=== PATIENT | female | born 1985 | race Caucasian/White ===

== ENCOUNTER 2022-01-15 11:29 | Outpatient (CLI) | payer MEDICAID, SELFPAY ==
--- OUTSIDE RECORDS SUMMARY | 2022-01-15 11:33 | XMS_ITS | Clinical Summary ---
:1985 Author Organization [facility] Address [address] [place] [address] Care Team Providers Name Role Phone Unavailable Primary Care Provider Unavailable Source Comments You are receiving this document as you are listed as the primary care provider,follow-up provider, or the patient has been referred to you for consultation.This is in compliance with the Medicare and Medicaid EHR Incentive Program,which states Providers who transition their patient to another setting of careor provider of care or refers their patient to another provider of care shouldprovide summarycare record for each transition of care or referral. [facility] Allergies No known active allergies Medications Medication Sig Dispensed Refills Start Date End Date Status magnesium oxide Take 1-2 Tablets by 60 Tablet 1 01/13/2019 Active (MAG-OX) 400 MG mouth at bedtime as tablet needed. Vit-Fe 0 Acti ve Fumarate-FA ( VITAMIN OR) folic Acid 800 MCG Take 800 mcg by 0 Active tablet mouth daily. Cholecalciferol 0 Acti ve (VITAMIN D3 OR) hydrOXYzine HCl Take 50 mg by mouth 0 Active (ATARAX) 50 MG tablet three times a day as needed. Ascorbic Acid 0 Active (VITAMIN C OR) magnesium oxide Take 400 mg by 0 Active (MAG-OX) 400 MG mouth daily. tablet acetaminophen Take 500-1,000 mg 0 Active (TYLENOL) 500 MG by mouth every 4 tablet hours as needed for Pain. Maximum acetaminophen dose is 4000 mg in 24 hours calcium carbonate Take 500 mg by 0 Active (TUMS) 500 MG mouth daily. chewable tablet diphenhydrAMINE Take 25 mg by mouth 0 Active (BENADRYL) 25 MG every 6 hours as tablet needed for Itching. ferrous sulfate 325 Take 1 Tablet by 100 Tablet 01/15/2019 Active (65 Fe) MG tablet mouth every other day. Active Problems No known active problems Immunizations Name Administration Dates Next Due 4vHPV (Gardasil) 07/07/2012 DTP 11/28/1984, 02/14/1984, 1985, 1985 MMR 10/05/1984 OPV, Trivalent (Orimune or tOPV) 11/28/1984, 1983, 09/1983 Tdap 11/22/2018, 12/27/2011 Social History Tobacco Use Types Packs/Day Years Used Date Smoking Tobacco: Every Day Cigarettes 1 20 Smokeless Tobacco: Never Tobacco Cessation: Ready to Quit: No Alcohol Use Standard Drinks/Week Comments Not Currently 0 (1 standard drink = 0.6 oz pure alcoho l) Sex Assigned at Date Recorded Not on file Last Filed Vital Signs Vital Sign Reading Time Taken Comments Blood Pressure 131/67 01/15/2019 2:26 PM APPLICATION DEVELOPMENT DIRECTOR Pulse 91 01/15/2019 2:26 PM APPLICATION DEVELOPMENT DIRECTOR Temperature 36.9 ??C (98.4 ??F) 01/13/2019 8:10 PM APPLICATION DEVELOPMENT DIRECTOR Respiratory Rate 18 01/13/2019 8:10 PM APPLICATION DEVELOPMENT DIRECTOR Oxygen Saturation 100% 01/13/2019 8:10 PM APPLICATION DEVELOPMENT DIRECTOR Inhaled Oxygen Concentration - - Weight 87.1 kg (192 lb) 01/15/2019 2:26 PM APPLICATION DEVELOPMENT DIRECTOR Height 165.1 cm (5' 5) 01/12/2019 5:11 PM APPLICATION DEVELOPMENT DIRECTOR Body Mass Index 31.95 01/12/2019 5:11 PM APPLICATION DEVELOPMENT DIRECTOR Plan of Treatment Health Maintenance Due Date Last Done Comments Cervical Cancer Screening 1985 Due Hep C Screening (Preventive 1985 Services) HepB (1) 1985 COVID-19 Vaccine (#1) 1985 Pneumococcal (1 - PCV) 06/06/1989 HIV Screening (Preventive 1999 Services) Adult Preventive Visit 06/06/2001 Influenza (#1) 2021 DTaP/Tdap/Td (7 - Tdap) 11/22/2028 11/22/2018, 12/27/2011, 11/28/1984, Additional history exists Zoster/Shingles (1 of 2) 06/06/2033 IPV (Polio) Aged Out 11/28/1984, 1983, No longe r eligible 1983 based on patient 's age to complete this topic HPV Vaccine Aged Out 07/07/2012 No longer eligib le based on patient 's age to complete this topic HepA Aged Out No longer eligib le based on patient 's age to complete this topic Hib Aged Out No longer eligib le based on patient 's age to complete this topic MCV4 Aged Out No longer eligib le based on patient 's age to complete this topic Advance Directives Latest Code Status on File Code Status Date Activated Date Inactivated Comments Full Code 01/13/2019 9:23 PM 01/14/2019 12:10 AM Code Status History Code Status Date Activated Date Inactivated Comments Full Code 01/12/2019 6:38 PM 01/12/2019 11:11 PM Full Code 01/12/2019 4:57 PM 01/12/2019 6:38 PM
--- OUTSIDE RECORDS SUMMARY | 2022-01-15 11:33 | XMS_ITS | Encounter Summary ---
:1985 Author Organization [facility] Address [address] [place] [address] Care Team Providers Name Role Phone Unavailable Primary Care Provider Unavailable Reason for Visit Reason Comments FOLLOW-UP,ER Consult/Transfer Care (Routine) - Closed Specialty Diagnoses / Procedures Referred By Contact Refer red To Contact Diagnoses Hx of delivery, currently Pinky Contreras MD [address] [place] [address] Referral ID Status Reason Start Date Expiration Date Visits Requ ested Visits Authorized [id number] Closed 01/12/2019 04/12/2019 1 1 Encounter Details Date Type Department Care Team Description 01/15/2019 Office Visit [facility] Obstetrics and Fausto Heath History of delivery, currently (Primary Dx); Gynecology MD Phi Anemia during in t hird trimester; [facility] Insomnia, unspecified type [place], [place] [id number] Social History Tobacco Use Types Packs/Day Years Used Date Smoking Tobacco: Every Day Cigarettes 1 20 Smokeless Tobacco: Never Alcohol Use Standard Drinks/Week Comments Not Currently 0 (1 standard drink = 0.6 oz pure alcoho l) Sex Assigned at Date Recorded Not on file documented as of this encounter Last Filed Vital Signs Vital Sign Reading Time Taken Comments Blood Pressure 131/67 01/15/2019 2:26 PM BI APPLICATION DEVELOPER Pulse 91 01/15/2019 2:26 PM BI APPLICATION DEVELOPER Temperature - - Respiratory Rate - - Oxygen Saturation - - Inhaled Oxygen Concentration - - Weight 87.1 kg (192 lb) 01/15/2019 2:26 PM BI APPLICATION DEVELOPER Height - - Body Mass Index 31.95 01/12/2019 5:11 PM BI APPLICATION DEVELOPER documented in this encounter Patient Instructions Patient InstructionsFausto Heath MD - 01/15/2019 2:20 PM BI APPLICATION DEVELOPER ?? Follow-up with [facility] next week. If unable then please return to see Dr. Heath in1 week. Please complete a release of information to have records released to [facility] and sendit as soon as you find out. ?? Call with any questions. --Dr. Heath APPLICATION DEVELOPER documented in this encounter Progress Notes Fausto Heath MD - 01/15/2019 2:20 PM CST Chief Complaint Patient presents with ??? FOLLOW-UP,ER -requests 17-OHP 33 y.o. at 34w2d by Estimated Date of Delivery: 02/24/19 ?by her first ultrasound but uncertain of how far along. Had blood work with aneuploidy screen done so knows it is a girl, maybe it was around the same time as her US. Since Tuesday baby's movements have been typical; no bleeding, having small discharge. No odor, no itching. No LOF. Having difficulty with sleep, reports she used to be on Ambien and psychiatrist switched her to Lunesta - not taking them due to . Taking magneisum, which helps with restless leg type sxs. No CP/SOB. No SI. BP 131/67 (BP Location: Right Arm, BP Cuff Size: Regular) Pulse 91 Wt 192 lb (87.1 kg) BMI 31.95 kg/m?? Gen: NAD, is pleasant Eyes: Normal eye movements, no conjunctival hyperemia/normal injection; negative Resp: Good respiratory efforts; negative Lymph/Neck: No lymphadenopathy visualized, no thyromegaly seen; negative ENT: vocalizes normally; negative MS: Moves about easily; negative GI: Soft, NTTP throughout, no rebound/rigidity/guarding; gravid. Skin: No skin lesions are visible; negative Psych: Judgement appears normal; negative 1. History of delivery, currently 2. Anemia during in third trimester 3. Insomnia, unspecified type Orders Placed This Encounter ??? HYDROXYprogesterone injection 250 mg ??? ferrous sulfate 325 (65 Fe) MG tablet Patient Instructions ?? Follow-up with [facility] next week. If unable then please return to see Dr. Heath in 1 week. Please complete a release of information to have records released to [facility] and send itas soon as you find out. ?? Call with any questions. --Dr. Heath I did recommend continuing with her prior clinic for continuity but that I'm happy to see her if shecan't due to specifics of her rehab center. I wished her well with continued sobriety. Encouraged sleep hygiene but she already does that - should discuss it with her psychiatrist. Fausto Heath MD 01/15/2019, 5:42 PM APPLICATION DEVELOPER documented in this encounter Plan of Treatment Not on filedocumented as of this encounter Visit Diagnoses Diagnosis History of delivery, currently p regnant - Primary with history of pre-term labor Anemia during in third trimest er Insomnia, unspecified type documented in this encounter Administered Medications Inactive Administered Medications - up to 3 most recent administrations Medication Order MAR Action Action Date Dose Rate Site HYDROXYprogesterone Given 01/15/2019 250 mg Left Ventralgluteal injection 250 mg 3:11 PM BI APPLICATION DEVELOPER 250 mg, Intramuscular, WEEKLY, First dose on Tue01/15/19 at 1515, Last dose on Tue01/15/19 at 1515, For 1 dose, Preparation: Single glove, gown; face mask optional Administration: Single glove documented in this encounter
--- OUTSIDE RECORDS SUMMARY | 2022-01-15 11:33 | XMS_ITS | Encounter Summary ---
:1985 Author Organization [facility] Address [address] [place] [address] Care Team Providers Name Role Phone Unavailable Primary Care Provider Unavailable Encounter Details Date Type Department Care Team Description 01/13/2019 Hospital Encounter [facility] Labor & Delivery Emily Gilmore contractions [address] Everardo Morton MD (Primary Dx) [place], [place] [address] [facility] [address] [place], [place] [phone] [id number] Social History Tobacco Use Types Packs/Day Years Used Date Smoking Tobacco: Every Day Cigarettes 1 20 Smokeless Tobacco: Never Alcohol Use Standard Drinks/Week Comments Not Currently 0 (1 standard drink = 0.6 oz pure alcoho l) Sex Assigned at Date Recorded Not on file documented as of this encounter Last Filed Vital Signs Vital Sign Reading Time Taken Comments Blood Pressure 129/71 01/13/2019 8:10 PM QUARTZ ORIENTATOR Pulse 91 01/13/2019 8:10 PM QUARTZ ORIENTATOR Temperature 36.9 ??C (98.4 ??F) 01/13/2019 8:10 PM QUARTZ ORIENTATOR Respiratory Rate 18 01/13/2019 8:10 PM QUARTZ ORIENTATOR Oxygen Saturation 100% 01/13/2019 8:10 PM QUARTZ ORIENTATOR Inhaled Oxygen Concentration - - Weight 86.3 kg (190 lb 3.2 oz) 01/13/2019 8:10 PM QUARTZ ORIENTATOR Height - - Body Mass Index 31.65 01/12/2019 5:11 PM QUARTZ ORIENTATOR documented in this encounter Discharge Instructions Discharge InstructionsSophie Silverio RN - 01/13/2019 9:[address] [facility] Baby Careline [phone]; to be used by [facility] patients and [facility] patients TZ ORIENTATOR Discharge Instr - SafetySophie Silverio RN - 01/13/2019 9:50 PM QUARTZ ORIENTATOR Call your clinic or seek medical help if you have any sudden change in your condition or if you haveany of the following: Please be seen by your doctor for the following symptoms: Sharp abdominal pain If your water breaks Abnormal bleeding or discharge Decreased movement TZ ORIENTATOR documented in this encounter Medications at Time of Discharge Medication Sig Dispensed Refills Start Date End Date magnesium oxide (MAG-OX) Take 1-2 Tablets by 60 Tablet 1 400 MG tablet mouth at bedtime as needed. documented as of this encounter Progress Notes Sophie Silverio RN - 01/13/2019 8:36 PM CST Mabel Villegas, a at 34w0d with an MONROE of 02/24/2019, Alternate MONROE Entry, was seen at Labor& Delivery for a nonstress test. Pt states feeling well today. Arrived to L&D for NST and second dose of betamethasone injection.NST via external monitors showed reactive FHT, 145 baseline with moderate variability, 15x15 accels present, decels absent. Pt denies feeling contractions. Second betamethasone injection administered at 2029 in right ventral gluteal. Plan : discharge pt TZ ORIENTATOR documented in this encounter Consult Notes Winsome Stevenson RN - 01/13/2019 10:10 PM CST Pt at [facility], staff called to ask about progesterone injection that is supposed william scheduled tomorrow. Called [facility] to set up, stated they are unable to get in due to lack of appointments available. This staff suggested they call back and ask to have a nurse appointment due to the fact that it is an appt to receive an injection. Consulted here with Ramon GIRON and it was agreed that this would be appropriate. Stated to [facility] RN to call us back if they run into the same obstacle. TZ ORIENTATOR documented in this encounter Plan of Treatment Not on filedocumented as of this encounter Visit Diagnoses Diagnosis contractions - Primary Unspecified abnormality of labor, antepa rtum Plan of Care - Sophie Silverio RN - 01/13/2019 10:10 PM CST [facility] Discharge Note - Nursing Admission Date/Time: 01/13/2019 8:04 PM Attending MD: Patient discharged: To [facility] Discharge Date: 01/13/2019 Discharge Time: 10:10 PM Patient accompanied by: [employer] local flatbed driver. Transported by: Walked Valuables were taken home by patient: Yes Discharge instructions given and explained to patient: Yes Discharge Patient Education Plan completed, taught, and provided to patient/caregiver at discharge: Yes ?? Discussed medication risks with patient ?? Patient understands medications usage and side effects ?? Patient understands diagnosis ?? Action Plan for management of symptoms/side effects/complications requiring medical attention established and shared with patient/caregiver Was patient discharged on Warfarin? {(Do not delete line; Warfarin documentation is required) No Patients general condition on discharge: Stable. All medical devices (telemetry/IV/etc) unless otherwise ordered, have been removed and stored: Yes Report Completed by: Sophie Silverio RN --- End of Report --- TZ ORIENTATOR documented in this encounter Administered Medications Inactive Administered Medications - up to 3 most recent administrations Medication Order MAR Action Action Date Dose Rate Site betamethasone Given 01/13/2019 8:30 12 mg Right Ventralgluteal acetate-betamethasone PM QUARTZ ORIENTATOR sodium phosphate (CELESTONE SOLUSPAN) injection 12 mg 12 mg, Intramuscular, ONCE, On 01/13/19 at 2044, For 1 dose documented in this encounter Active and Recently Administered Medications Times are shown in QUARTZ ORIENTATOR. Scheduled Medication Order 01/11/2019 01/12/2019 01/13/2019 betamethasone acetate-betamethasone sodi um phosphate (CELESTONE SOLUSPAN) injection 12 mg (COMPLETED) 2029 (Given - Provider: Sophie Silverio RN) 12 mg, Intramuscular, ONCE, On 01/13/19 at 2044, For 1 dose documented in this encounter
--- OUTSIDE RECORDS SUMMARY | 2022-01-15 11:33 | XMS_ITS | Clinical Summary ---
:1985 Author Organization [facility] [place] [address] Care Team Providers Name Role Phone None Primary Care Provider Unavailable Allergies No known active allergies Medications Medication Sig Dispensed Refills Start End Date Status Date ACETAMINOPHEN 325 MG TAB Take 1-2 325mg 0 0 Active tablets by mouth 8 every 4 hours for mild pain as needed. Take 1 Tablet by 100 Tablet 3 Ac tive Gjrycuui-Bx-Kcp-Fe-FA mouth once daily. 1 ( Vitamin) tab Take one by mouth tabletIndications: daily. Suprvsn of high risk preg due to social problems, second tri hydroxyprogesterone Inject 250 mg 1 mL 20 Active caproate (Cementon) 250 intramuscular once 1 mg/mL (1 mL) (PF) weekly. From 16 injectionIndications: weeks gestation History of till 36 6/7 weeks delivery, currently gestation. in second trimester mirtazapine (REMERON) 0 Active 7.5 mg tablet 1 Active Problems Problem Noted Date Antepartum multigravida of advanced maternal age 0910/17 ADHD (attention deficit hyperactivity disorder) 2019 Hx of drug abuse 02/16/2019 Overview: Methamphetamine use. Tobacco use disorder 04/03/2007 Anemia, unspecified 04/03/2007 RH NEGATIVE 04/03/2007 Overview: Rhogam given 04/03/07, 04/04/07 Opioid type dependence, unspecified 04/03/2007 Overview: Vicodin Prior complicated by PIH, antepartum, unspec ified trimester Resolved Problems Problem Noted Date Resolved Date care, subsequent in third trimester 02/1601/18/2020 Overview: Hx significant for delivery 31 w eeks, abruption. Vaginal forceps. AMA Hx opioid dependence Hx Chlamydia Hx Anemia-taking iron supplements RH NEG Hx Methamphetamine use in . Las t used 12/15/18 per patient. Prepregnancy BMI: Early GCT: ASA: Dated by: LMP consistent with US on 01/09 02/25 Would accept blood products: yes Pertinent medical information: See above Previous deliveries reviewed by MD: screening: Screening US: Contraception plan: Rh neg, Rhogam: FORCEPS DELIVERY 04/04/2007 01/18/2020 FORCEPS ASSISTED VAGINAL DELIVERY AT 31 WEEKS 04/04/2007 01/18/2020 Midline Episiotomy 04/04/2007 01/18/2020 Premature rupture of membranes in , unspecified as to 04/03/2007 01/18/2020 episode of care Overview: Duration: Tuesday04/01/2007 Threatened premature labor, antepartum(644.03) 04/03/2007 01/18/2020 Chlamydia trachomatis infection of lower genitourinary sites 04/03/2007 01/18/2020 Overview: Positive 01/12/2007 status post treatmen t, partner treated, no test for cure, retreated 04/04/07 RH NEGATIVE 04/03/2007 01/18/2020 Overview: Rhogam given 04/03/07 & 04/04/07 Oligohydramnios, unspecified as to episode of care 8 01/18/2020 Nondependent amphetamine or related acting sympathomimetic 0 04/03/2007 01/18/2020 abuse, unspecified Alcohol abuse, unspecified 04/03/2007 01/18/2020 Overview: early Opioid type dependence, unspecified 04/03/200701/07 Overview: Vicodin Immunizations Name Administration Dates Next Due DTP 11/28/1984, 02/14/1984, 1985, 1985 Human Papilloma Virus Vaccine 07/07/2012 Influenza Virus, Unspecified 10/19/2016, 11/06/2012 Influenza, IIV3 (Age >=3 years) 10/12/2011, 04/06/2007 Influenza, IIV4 12/22/2018, 10/19/2016 MMR 02/20/2019, 10/05/1984 Oral Polio Vaccine 11/28/1984, 1983, 1983 Tdap 11/22/2018, 12/27/2011 Family History Medical History Relation Name Comments Good Health Daughter Heart attack Father Diabetes Mother Hypertension Mother Relation Name Status Comments Daughter Alive Father Mother Alive Social History Tobacco Use Types Packs/Day Years Used Date Current Every Day Smoker Cigarettes 0.5 Smokeless Tobacco: Never Used Tobacco Cessation: Ready to Quit: No; Co unseling Given: Yes Alcohol Use Standard Drinks/Week Comments No 0 (1 standard drink = 0.6 oz pure alcoho l) Sex Assigned at Date Recorded Not on file Obstetrics History Para Term AB IAB SAB Ectopic Multiple Living Live Births 6 2 1 1 3 0 1 0 0 2 2 Date Outcome GA Total Labor/2nd/3rd Weight Sex Delivery Anes PTL Eleonora A 1 A5 Name Clin Labor 2004 SAB 04/04 30w 1.42 kg F VAGINAL Epidu Y Zora Dea /2007 0d (3 lb 2 FORC ral ng ra oz) Complications: Abruptio Placenta Delivery Location: [facility] Comments: no known reason for pret erm 2009 AB 2018 AB 2019 Term 40w0d 3.18 kg (7 lb) F Vag Living Comments: used progesterone inject ions to prevent PTL at 16 wk Last Filed Vital Signs Vital Sign Reading Time Taken Comments Blood Pressure 137/78 11/21/2020 3:00 PM CDT Pulse 94 11/21/2020 3:00 PM CDT Temperature 36.3 ??C (97.4 ??F) 11/21/2020 3:00 PM CDT Respiratory Rate 16 11/19/2020 2:47 PM CDT Oxygen Saturation 100% 11/21/2020 3:00 PM CDT Inhaled Oxygen Concentration - - Weight 77.1 kg (170 lb) 11/21/2020 3:00 PM CDT per jacoby ent Height 165.1 cm (5' 5) 11/21/2020 3:00 PM CDT Body Mass Index 28.29 11/21/2020 3:00 PM CDT Plan of Treatment Health Maintenance Due Date Last Done Comments COVID-19 vaccine series (#1) 1985 Pneumococcal series for age 19-64 06/06/1989 (1 - PCV) Influenza for age 9-49 10/08/2021 12/22/2018, 10/19/2016, 10/19/2016, Additional history exists BMI (ht and wt on same day) for 10/15/2021 10/15/2020, 01/07, age 18+ 02/16/2019, Additional history exists Depression screening for age 12+ 11/21/2021 11/21/2020, , 11/20/2020, Additional history exists Pap test for age 21-65 10/16/2023 10/15/2020, 10/15/2020, 10/02/2019, Additional history exists Tetanus booster 11/22/2028 11/22/2018, 12/27/2011 Tdap Completed 11/22/2018, 12/27/2011 HIV for age 15-65 Completed 01/18/2020 Hepatitis C screening for age Completed 01/18/2020 18-79 Results Not on filefrom Last 3 Months Insurance Payer Benefit Plan / Subscriber ID Effective Dates Phone Addre ss Type Group [facility] NIKA RIDGE MAHER [id number] 2019-Present [address] [place] [address] [facility] [id number] 2019-Present [address] [place] [address] [address] [place] [address] Mabel Villegas Personal/Family Self 1985 [address] ([address]) [address] [place] [address] Advance Directives Latest Code Status on File Code Status Date Activated Date Inactivated Comments Full Code 04/03/2007 2:37 PM 04/04/2007 4:32 AM Care Teams Glass Furnace Operator Relationship Specialty Start Date End Date None PCP - General 09/29/20 .
--- OUTSIDE RECORDS SUMMARY | 2022-01-15 11:33 | XMS_ITS | Encounter Summary ---
:1985 Author Organization [facility] Address [address] [place] [address] Care Team Providers Name Role Phone Unavailable Primary Care Provider Unavailable Reason for Visit Reason Comments Future Appointments Orders Needed Encounter Details Date Type Department Care Team Description 01/14/2019 Telephone [facility] Obstetrics and Unknown, Terrie driver Appointments; Gynecology Physician Orders Needed [address] [facility] [address] [place] [address] [place], [place] [phone] Social History Tobacco Use Types Packs/Day Years Used Date Smoking Tobacco: Every Day Cigarettes 1 20 Smokeless Tobacco: Never Alcohol Use Standard Drinks/Week Comments Not Currently 0 (1 standard drink = 0.6 oz pure alcoho l) Sex Assigned at Date Recorded Not on file documented as of this encounter Progress Notes Faith Marques RN - 01/15/2019 12:37 PM MANAGER WIND Addended by: FAITH MARQUES on: 01/15/2019 12:37 PM Modules accepted: Orders GER WIND documented in this encounter Nursing Notes Faith Marques RN - 01/15/2019 2:18 PM CST Visit rescheduled with MD today as provider was not comfortable authorizing order for nurse visit. Faith Marques RN 01/15/2019, 2:18 PM GER WIND Faith Marques RN - 01/15/2019 12:34 PM CST Received note from Dr. Contreras for patient to receive standard dose of IM progesterone See note below. There was no order placed. Patient is on the nurse schedule today at 2:00. Order pended for hydroxyprogesterone 250 mg IM. Will have MD of the day review and authorize. Ok for hydroxyprogesterone 250 mg IM today? Faith Marques RN 01/15/2019, 12:36 PM GER WIND Rufina Guzman - 01/15/2019 9:16 AM CST APPT WAS MADE GER WIND Pinky Contreras MD - 01/14/2019 5:16 PM CST This patient was seen in triage at [facility] by nc on 01/12 and given a course of BMZ on 01/12 and 01/13.She is in [place] as she is admitted to inpatient treatment at [facility] and usually gets care in [place]. Ms. Villegas needs to be seen in an OB clinic (any site) on Monday 01/15 for a standard dose IM progesterone injection. She can be on the RN schedule. If she is going to be in [place] for more than thenext weeks, she should then have a visit the week of 01/22. Please call [facility] at [phone] to get her scheduled. Pinky Contreras MD DOS: 01/14/2019 GER WIND Vance Wilkins - 01/14/2019 3:40 PM CST Appointments - Same Day / Future Patient would like appointment with: Any Provider Encounter Clinician: Physician Joyce MD Patient requesting appointment for: Pt was seen in [facility] er for labor 01/12 and 01/13 was advised to get progesterone shot for labor Wants/Needs to be seen within: 2 day(s) Is it okay to leave detailed message on your voicemail? Yes Vance Wilkins GER WIND documented in this encounter Plan of Treatment Not on filedocumented as of this encounter Visit Diagnoses Not on filedocumented in this encounter
--- OUTSIDE RECORDS SUMMARY | 2022-01-15 11:33 | XMS_ITS | Encounter Summary ---
:1985 Author Organization [facility] Address [address] [facility] [place] [address] Care Team Providers Name Role Phone Unavailable Primary Care Provider Unavailable Reason for Referral Consult/Transfer Care (Routine) - Closed Specialty Diagnoses / Procedures Referred By Contact Refer red To Contact Diagnoses Hx of delivery, currently Pinky Contreras MD [address] [place] [address] Referral ID Status Reason Start Date Expiration Date Visits Requ ested Visits Authorized [id number] Closed 01/12/2019 04/12/2019 1 1 Scheduling Instructions Your provider has recommended you to fol low up with your Primary Customer Resolution Specialist. A pointing machine operator will contact you within the next 3 business days to assist you in setting up this appointment. You may also schedu le your appointment by calling [phone]. We suggest you call your Qik about your coverage and benefits for this service. DATION INTERN Reason for Visit Reason Comments Other pt is here to get her weekly 17 hydroxyprogesterone shot Concerns due date 02/24/19 33.6 weeks pregnent Encounter Details Date Type Department Care Team Description 01/12/2019 Emergency [facility] Labor & Delivery Pinky Contreras I, Hx of delivery, curr ently (Primary Dx); Laurie Mcgee MD Anxiety; [place], [place] [id number] [facility] Methamphetamine abuse (HRC); [phone] [place] [address] contractions [phone] (Wo rk) Social History Tobacco Use Types Packs/Day Years [...] Sign Reading Time Taken Comments Blood Pressure 126/72 01/12/2019 3:36 PM VALIDATION INTERN Pulse 81 01/12/2019 5:26 PM VALIDATION INTERN Temperature 36.8 ??C (98.3 ??F) 01/12/2019 3:36 PM VALIDATION INTERN Respiratory Rate 20 01/12/2019 3:36 PM VALIDATION INTERN Oxygen Saturation 100% 01/12/2019 5:26 PM VALIDATION INTERN Inhaled Oxygen Concentration - - Weight 84.4 kg (186 lb) 01/12/2019 5:11 PM VALIDATION INTERN Height 165.1 cm (5' 5) 01/12/2019 5:11 PM VALIDATION INTERN Body Mass Index 30.95 01/12/2019 5:11 PM VALIDATION INTERN documented in this encounter Discharge Instructions Discharge InstructionsDeloris Chilel RN - 01/12/2019 8:[address] [facility] Baby Careline [phone]; to be used by [facility] patients and [facility] patients DATION INTERN Discharge Instr - SafetyDeloris Chilel RN - 01/12/2019 8:33 PM CST Call your clinic or seek medical help if you have any sudden change in your condition or if you haveany of the following: {IP D/C DANGER SIGNS:[id number]} DATION INTERN documented in this encounter Medications at Time of Discharge Medication Sig Dispensed Refills Start Date End Date magnesium oxide (MAG-OX) Take 1-2 Tablets by 60 Tablet 1 400 MG tablet mouth at bedtime as needed. magnesium oxide (MAG-OX) Take 1 Tablet by 60 Tablet 1 01/1301/13/2019 400 MG tablet mouth daily. documented as of this encounter Progress Notes Velma De Souza MD - 01/12/2019 9:11 PM CST Results reviewed, nothing to do at this time. Velma De Souza MD Obstetrics & Gynecology Resident PGY-3 01/15/2019 9:00 AM DATION INTERN Shantel Mitchell RN - 01/12/2019 5:54 PM CST Patient continues to have uterine irritability, Dr. Garza here to re- evaluate cervix noted to be1-2/40. FHT's 135 moderate variability +FM, difficult to monitor at times. Continue to observe. Will GSB. Shantel Mitchell RN DATION INTERN documented in this encounter OR Notes H&P - Pinky Contreras MD - 01/12/2019 8:23 PM CST Labor and Delivery Triage Note CC: cramping HPI: Mabel Villegas is a 33 y.o. at 33w6d who presents for cramping, progesterone shot. She states she has been getting progesterone injections for hx of delivery @ 30 weeks. Currently, she is asymptomatic, no contractions. Patient had abdominal cramping earlier today and last night. Repo rts she was up most of the night with urinary frequency, abdominal cramping. No dysuria. No LOF. No vaginal bleeding. Normal movement. Here for progesterone shot. Will likely deliver at [facility]. Previously going to a clinic in [place]. Patient currently living at [facility], will likely transfer care to [facility] area. complicated by: - Hx of delivery at 30 wks (12 years ago) - Methamphetamine use - Tobacco use - AMA - Hx of chlamydia - Anxiety/Depression - ADHD - Rh neg - Rubella NI PMH: See HPI PSH: None Allergies: NKDA Social: See HPI Meds: PNV, stopped taking Lunesta and Vyvanse in Exam BP 126/72 Pulse 81 Temp 98.3 ??F (36.8 ??C) (Oral) Resp 20 Ht 5' 5 (1.651 m) Wt 84.4 kg (186 lb) SpO2 100% BMI 30.95 kg/m?? General: Alert, NAD, appropriate responses to questions. Heart: RRR without murmur Lungs: CTAB, no increased work of breathing Abdomen: Gravid, nontender. Cervix: 1/L/H Contractions: irritability EFM: Baseline 140s Variability: moderate Accelerations: present Decelerations: none Labs: Results for orders placed or performed during the hospital encounter of 01/12/19 UA Conditional UC: Result Value Ref Range Urine Color Straw Straw-Yellow Urine Clarity Clear Clear Specific [place], Urine 1.004 (L) 1.005 - 1.030 PH Urine 7.0 5.0 - 8.0 Protein, Urine Qual (mg/dL) Negative Negative Glucose Urine Qual (mg/dL) Negative Negative Ketones, Urine (mg/dL) Negative Negative Urobilinogen, Urine (EU/dL) <2.0 <2.0 Bilirubin Urine Negative Negative Blood, Urine Negative Neg/Trace Nitrite Urine Negative Negative Leukocyte Est. Negative Negative Red Blood Cells <1 0 - 3 /HPF White Blood Cells 3 0 - 5 /HPF Squamous Epithelial Cells Occasional None Seen, Occasional, Few /HPF Rapid Drug Panel, Urine (with Confirmation) Result Value Ref Range Amphetamines Screen Not Detected Not Detected Barbiturates Screen Not Detected Not Detected Benzodiazepines Screen Not Detected Not Detected Buprenorphine Screen Not Detected Not Detected Cocaine Metabolite Screen Not Detected Not Detected Methadone Screen Not Detected Not Detected Opiates Screen Not Detected Not Detected Oxycodone Screen Not Detected Not Detected Phencyclidine (PCP) Screen Not Detected Not Detected THC (Marijuana) Metab Screen Not Detected Not Detected Creatinine, Urine, Random 19 (L) >20 mg/dL Wet Prep Result Value Ref Range Fungal Elements Not Detected Not detected Clue Cells Not Detected Not Detected White Blood Cells Detected (A) Not Detected Trich Vaginalis Not Detected Not detected Assessment/Plan Mabel Villegas is a 33 y.o. at 33w6d by +3 US presenting for progesterone shot and abdominalcramping which has resolved. notable for hx of delivery at 30 weeks, methamphetamine use and tobacco use, ADHD, MDD/NAHUM, Rh neg, Rubella NI, hx of chlamydia. # Hx of delivery # Uterine irritablity at 30 weeks. Has been on progesterone IM weekly. Presented today for injection, but it is not supplied in the hospital. Discussed that we will need to set her up with a clinic appointment for early next week. With regards to uterine irritability, will proceed with labor workup. Exam largely benign. - Serial cervical exams - SSE - Wet prep, G/C, UA, UDS - BMZ if cervical change # Meth use in # [facility]. Patient motivated to get clean. - UDS collected - May benefit from SW prior to delivery - Plan to discharge back to [facility] - Could consider trazodone for sleep # PNC - Rh neg, s/p Rhogam at 28 weeks - Rubella NI, will need MMR - Level II US normal - Hx of chlamydia; GC/CT collected today # FWB Category I, reactive Addendum: Cervical change to 1.5/40/-2; will admit for BMZ, nifedipine tocolysis. After reviewing the details of the triage evaluation of Mabel Villegas with the treating nurse, I certify that Mabel Villegas is not in active labor at this time. Dispo: Admit overnight This patient was also seen by Dr. Contreras, who agrees with the above plan. Dilshad Garza MD Obstetrics & Gynecology, PGY3 Addendum: Went to see patient again for repeat cervical exam. Patient denies contractions at this time, feeling much better and very much would like to discharge. SVE: 1.5/60/-3 likely unchanged from previous exam Discussed with patient that even with no cervical change, due to history of labor, would still recommend observation overnight and betamethasone. Patient concerned that being in the hospital will make her more anxious and put her into labor and very much would like to leave, main priority for her is to get weekly 17OHP shot. Discussed that we unfortunately do not have the injections on formulary at the hospital and could not get it until Tuesday while in clinic. Ultimately discussed that it is patient's decision whether to stay or not and she decided to discharge. Pt seen and discussed with Dr. Contreras, who spoke with patient's treatment center about situation. [facility] comfortable with patient returning tonight. Plan to return tomorrow for repeat BMZ for full course. Patient voiced understanding and plans to return Loly Christina MD Obstetrics and Gynecology Resident, PGY-3 01/12/2019 8:23 PM AUTHOR'S AGENT Staff Note I saw and evaluated this patient. I agree with the findings and the plan of care as documented in the resident???s note. FHTs: I personally read the NST and it was category I, reactive. Recommended that patient get admitted for tocolysis and betamethasome given her subtle cervical change in context ofh/o PTB. Patient declined stating it would be too stressful to be in hospital. [facility] is close to [facility]. We discussed that leaving is her prerogative but that I recommended she stay given her history. She still declined. [facility] is ok bringing her back. She will come back with contractions worsenand will come back tomorrow night for 2nd BMZ. Still trying to get her BMZ shot (was brought to [facility] ED by [facility] without precommunication for this today and discussed this is not a medication that is given in the ED) and may contact her clinic in [place] if she desires but that I do not know if they stock it on the week nor if [facility] can drive her there and she will have to work out those logistics. I told her we would be happy to have her come to clinic Tuesday for the injection. Pinky Contreras MD Date of service: 01/12/2019 DATION INTERN documented in this encounter Plan of Treatment Scheduled Referrals Name Type Priority Associated Diagnoses Order S chedule Follow-up with your Referral Routine Hx of deliver y, Ordered: 01/12/2019 doctor currently documented as of this encounter Procedures Procedure Name Priority Date/Time Associated Comments Diagnosis TYPE AND SCREEN Routine 01/12/2019 8:18 PM Result s for this VALIDATION INTERN procedure are i n the results section. ANTIBODY IDENTIFICATION Routine 01/12/2019 8:18 PM Results for this VALIDATION INTERN procedure are i n the results section. ANTIBODY SCREEN Routine 01/12/2019 8:18 PM Result s for this VALIDATION INTERN procedure are i n the results section. TREPONEMA SCREEN Routine 01/12/2019 8:18 PM Resul ts for this VALIDATION INTERN procedure are i n the results section. BLOOD TYPE Routine 01/12/2019 8:18 PM Results f or this VALIDATION INTERN procedure are i n the results section. COMPLETE BLOOD COUNT-NO STAT 01/12/2019 8:18 PM Results for this DIFF VALIDATION INTERN procedure are i n the results section. GROUP B STREP SCREEN Routine 01/12/2019 6:23 PM R esults for this (OB PTS) VALIDATION INTERN procedure are i n the results section. CHLAMYDIA & GC (14 Routine 01/12/2019 5:00 PM Res ults for this YEARS AND OLDER) VALIDATION INTERN procedure a re in the results section. VAGINAL WET PREP STAT 01/12/2019 5:00 PM Resul ts for this VALIDATION INTERN procedure are i n the results section. RAPID DRUG PANEL, URINE Routine 01/12/2019 4:13 PM Results for this (WITH CONFIRMATION) VALIDATION INTERN procedur e are in the results section. UA CONDITIONAL UC STAT 01/12/2019 4:13 PM Resu lts for this VALIDATION INTERN procedure are i n the results section. documented in this encounter Results Antibody Identification (01/12/2019 8:18 PM VALIDATION INTERN) [facility] Method Time Signature Antibody Passive D 01/12/2019 [facility] Identification Antibody, 10:19 PM BLOOD BANK Patient VALIDATION INTERN Received RHIG Comment: Rhogam given at 28 weeks Specimen Anatomical Collection Method / Collection Time Recei sancho Time (Source) Location / Volume Laterality Blood Venipuncture / 01/12/2019 8:18 01/12/2019 8:23 Unknown PM VALIDATION INTERN PM VALIDATION INTERN Pinky Contreras MD LAB_1 Performing Organization Address City/[facility] Phon e Number [facility] [address] [place] [address] Antibody Screen (01/12/2019 8:18 PM VALIDATION INTERN) [facility] Method Mignon Signature Antibody Screen Positive 01/12/2019 [facility] BLOOD Interpretation 10:12 PM [facility]ATION INTERN BANK Specimen Anatomical Collection Method / Collection Time Recei sancho Time (Source) Location / Volume Laterality Blood Venipuncture / 01/12/2019 8:18 01/12/2019 8:23 Unknown PM VALIDATION INTERN PM VALIDATION INTERN Pinky Contreras MD LAB_1 Performing Organization Address [facility] Phon e Number [facility] [address] [place] [address] Blood Type (01/12/2019 8:18 PM VALIDATION INTERN) athologist Signature ABO A 01/12/2019 [facility] BLOOD 9:03 PM [facility] BANK RH Negative 01/12/2019 [facility] BLOOD 9:03 PM [facility]N BANK Specimen Anatomical Collection Method / Collection Time Recei sancho Time (Source) Location / Volume Laterality Blood Venipuncture / 01/12/2019 8:18 01/12/2019 8:23 Unknown PM VALIDATION INTERN PM VALIDATION INTERN Pinky Contreras MD LAB_1 Performing Organization Address City/State/ZIP Code Phon e Number [facility] [address] [place] [address] Treponema Screen (01/12/2019 8:18 PM VALIDATION INTERN) [facility] gist Method Time Signature Treponema Screen 0.111 {s_co_ratio 01/13/2019 [facility] Result } 8:29 PM [facility]ATION INTERN LABORATORY Treponema Screen Non Non 01/13/2019 [facility] Interpretation Reactive Reactive 8:29 PM [facility] LABORATORY Specimen Anatomical Collection Method / Collection Time Recei sancho Time (Source) Location / Volume Laterality Blood Venipuncture / 01/12/2019 8:18 01/12/2019 8:23 Unknown PM VALIDATION INTERN PM VALIDATION INTERN Pinky Contreras MD LAB_1 Performing Organization Address City/State/ZIP Code Phon e Number [facility] [address] [place] [address] (ABNORMAL) Complete Blood Count-No Diff (01/12/2019 8:18 PM VALIDATION INTERN) Analysis Performed At [facility] logist Time Signature WBC 13.6 (H) 3.5 - 10.5 01/12/2019 [facility] x10(9)/L 8:30 PM [facility] RBC 3.58 (L) 3.90 - 01/12/2019 [facility] 5.03 8:30 PM [facility] x10(12)/L Hemoglobin 9.7 (L) 12.0 - 01/12/2019 [facility] 15.5 g/dL 8:30 PM [facility] HCT 30.7 (L) 34.9 - 01/12/2019 [facility] 44.5 % 8:30 PM [facility] MCV 85.8 80.0 - 01/12/2019 [facility] 100.0 fL 8:30 PM [facility] MCH 27.1 (L) 27.6 - 01/12/2019 [facility] 33.3 pg 8:30 PM [facility] MCHC 31.6 31.5 - 01/12/2019 [facility] 35.2 g/dL 8:30 PM [facility] RDW 17.3 (H) 11.9 - 01/12/2019 [facility] 15.5 % 8:30 PM [facility] Platelets 317 150 - 450 01/12/2019 [facility] x10(9)/L 8:30 PM [facility] Automated NRBC 0 <=0 /100 01/12/2019 [facility] WBC 8:30 PM [facility] Specimen Anatomical Collection Method / Collection Time Recei sancho Time (Source) Location / Volume Laterality Blood Venipuncture / 01/12/2019 8:18 01/12/2019 8:23 Unknown PM [facility]IDATION INTERN PM VALIDATION INTERN Pinky Contreras MD LAB_1 Performing Organization Address [facility]/ZIP [facility] Phon e Number [address] [address] Group B Strep Screen (OB Pts) (01/12/2019 6:23 PM VALIDATION INTERN) [facility] Method Time Signature Group B Strep No Group B 01/15/2019 [facility] Screen Streptococcus 7:39 AM [facility] Isolated Specimen Anatomical Collection Method Collection Time Receive d Time (Source) Location / / Volume Laterality Swab (Source PERINEAL SWAB / Non-blood 01/12/2019 6:23 PM 2018 6:23 Required) Unknown Collection / VALIDATION INTERN PM VALIDATION INTERN Unknown Pinky Contreras MD LAB_1 Performing Organization Address [facility] Phon e Number [address] [address] (ABNORMAL) Wet Prep (01/12/2019 5:00 PM VALIDATION INTERN) [facility] [employer] [facility] Method Time Signature Fungal Not Detected Not detected 01/12/2019 [facility] Elements 5:41 PM [facility] Clue Cells Not Detected Not Detected 01/12/2019 [facility] 5:41 PM [facility] White Blood Detected (A) Not Detected 01/12/2019 [facility] Cells 5:41 PM [facility] Trich Not Detected Not detected 01/12/2019 [facility] Vaginalis 5:41 PM [facility] Specimen Anatomical Collection Method Collection Time Receive d Time (Source) Location / / Volume Laterality Swab (Source VAGINAL CERVIX / Non-blood 01/12/2019 5:00 PM 01/12 5:03 Required) Unknown Collection / VALIDATION INTERN PM VALIDATION INTERN Unknown Narrative [facility] - 01/12/2019 5:41 PM CS T Methodology: ??Manual Microscopic Pinky Contreras MD LAB_1 Performing Organization Address [facility]/ZIP [facility] Phon e Number [address] [address] Cervical Swab - Chlamydia & Gonorrhea (01/12/2019 5:00 PM VALIDATION INTERN) [facility] Method Time Signature Chlamydia Not Not 01/15/2019 [facility] Trachomatis Detected Detected 12:25 PM [facility] STD VALIDATION INTERN N. gonorrhoeae Not Not 01/15/2019 [facility] STD Detected Detected 12:25 PM [facility] VALIDATION INTERN Specimen Anatomical Collection Method Collection Time Receive d Time (Source) Location / / Volume Laterality Swab (Source ENTIRE ENDOCERVIX Non-blood 01/12/2019 5:00 PM 07/2018 5:03 Required) / Unknown Collection / VALIDATION INTERN PM VALIDATION INTERN Unknown Narrative [facility] - 01/15/2019 12:25 PM VALIDATION INTERN Test performed by Molecular Detection Pinky Contreras MD LAB_1 Performing Organization Address City/State/ZIP Code Phon e Number [facility] [address] [address] (ABNORMAL) Rapid Drug Panel, Urine (with Confirmation) (01/12/2019 4:13 PM VALIDATION INTERN) [facility] Method Time Signature Amphetamines Not Not 01/12/2019 [facility] Screen Detected Detected 4:38 PM [facility] Barbiturates Not Not 01/12/2019 [facility] Screen Detected Detected 4:38 PM [facility] Benzodiazepines Not Not 01/12/2019 [facility] Screen Detected Detected 4:38 PM [facility] Buprenorphine Not Not 01/12/2019 [facility] Screen Detected Detected 4:38 PM [facility] Cocaine Metabolite Not Not 01/12/2019 [facility] Screen Detected Detected 4:38 PM [facility] Methadone Screen Not Not 01/12/2019 [facility] Detected Detected 4:38 PM [facility] Opiates Screen Not Not 01/12/2019 [facility] Detected Detected 4:38 PM [facility] Oxycodone Screen Not Not 01/12/2019 [facility] Detected Detected 4:38 PM [facility] Phencyclidine Not Not 01/12/2019 [facility] (PCP) Screen Detected Detected 4:38 PM [facility] THC (Marijuana) Not Not 01/12/2019 [facility] Metab Screen Detected Detected 4:38 PM [facility] Creatinine, Urine, 19 (L) >20 mg/dL 01/12/2019 [facility] Random 4:38 PM [facility] Specimen Anatomical Collection Method Collection Time Receive d Time (Source) Location / / Volume Laterality Urine,random 01/12/2019 4:13 PM 9 4:16 VALIDATION INTERN PM [facility] - 01/12/2019 4:38 PM CS T The absence of expected drug(s) and/or drug metabolite(s) may indicate non- compliance, inappropriate timing of specimen collection relative to drug administration, poor drug absorption, diluted/adultera ben urine or limitations of testing. The concentration must be greater than or equal to the cutoff concentration to be reported as positive. For medical purposes only: not valid for forensic, legal, or employment use. Results may be affected due to urine cre atinine <20 mg/dL. Pinky Contreras MD LAB_1 Performing Organization Address City/State/ZIP Code Phon e Number [address] [address] (ABNORMAL) UA Conditional UC: (01/12/2019 4:13 PM [facility]) [facility] Method Time Signature Urine Color Straw Straw-Yellow 01/12/2019 [facility] 4:36 PM [facility] Urine Clarity Clear Clear 01/12/2019 [facility] 4:36 PM [facility] Specific 1.004 (L) 1.005 - 01/12/2019 [facility] [place], Urine 1.030 4:36 PM [facility] PH Urine 7.0 5.0 - 8.0 01/12/2019 [facility] 4:36 PM [facility] Protein, Urine Negative Negative 01/12/2019 [facility] Qual (mg/dL) 4:36 PM [facility] Glucose Urine Negative Negative 01/12/2019 [facility] Qual (mg/dL) 4:36 PM [facility] Ketones, Urine Negative Negative 01/12/2019 [facility] (mg/dL) 4:36 PM [facility] Urobilinogen, <2.0 <2.0 01/12/2019 [facility] Urine (EU/dL) 4:36 PM [facility] Bilirubin Negative Negative 01/12/2019 [facility] Urine 4:36 PM [facility] Blood, Urine Negative Neg/Trace 01/12/2019 [facility] 4:36 PM [facility] Nitrite Urine Negative Negative 01/12/2019 [facility] 4:36 PM [facility] Leukocyte Est. Negative Negative 01/12/2019 [facility] 4:36 PM [facility] Red Blood <1 0 - 3 /HPF 01/12/2019 [facility] Cells 4:36 PM [facility] White Blood 3 0 - 5 /HPF 01/12/2019 [facility] Cells 4:36 PM [facility] Squamous Occasional None Seen, 01/12/2019 [facility] Epithelial Occasional, 4:36 PM [facility] Cells Few /HPF Specimen Anatomical Collection Method Collection Time Receive d Time (Source) Location / / Volume Laterality Urine URINE SPECIMEN Non-blood 01/12/2019 4:13 PM 019 4:34 COLLECTION, CLEAN Collection / VALIDATION INTERN PM [facility] INTERN CATCH / Unknown Unknown Pinky Contreras MD LAB_1 Performing Organization Address City/State/ZIP Code Phon e Number [address] [address] documented in this encounter Visit Diagnoses Diagnosis Hx of delivery, currently pregna nt - Primary with history of pre-term labor Anxiety (HRC) Anxiety state, unspecified Methamphetamine abuse (HRC) Nondependent amphetamine or related acti ng sympathomimetic abuse, unspecified contractions Unspecified abnormality of labor, antepa rtum Plan of Care - Deloris Chilel RN - 01/12/2019 8:57 PM CST [facility] Discharge Note - Nursing Admission Date/Time: 01/12/2019 3:18 PM Attending MD: Pinky Contreras MD Patient discharged: to Rehab. Discharge Date: 01/12/2019 Discharge Time: 8:57 PM Patient accompanied by: [facility] Facility Staff. Transported by: Walked Valuables were taken home [...] removed and stored: Yes Report Completed by: Deloris Chilel RN --- End of Report --- DATION INTERN Plan of Care - Deloris Chilel RN - 01/12/2019 7:34 PM CST 1929: Went in to meet pt. and talked about the plan to observe overnight due to recent change in cervical exam. Plan to give beta. Pt. not agreeable to plan. Pt states can they just check me again nowso I can leave? I am not really even feeling any contractions anymore. 1934: OB team notified of pt.'s request. Currently performing SVE and chatting with patient about what would be best for next steps. 1935: SVE 1-2/60-70%/high posterior per resident exam. 1949: Beta #1 given. 1954: OB team talking with pt. about recommendation to stay due to change in SVE. Pt. states I would like to go back, I live close, I am not feeling contractions. OB team discussing it may be a challenge due to pt.'s need to be escorted back and forth from treatment center, not sure what their rules are for transporting, however they state they cannot force pt. to stay, but need to state their recommendation. 1957: Pt. calling treatment center now. 2054: Discharge orders placed. Pt. To return tomorrow for beta #2. Treatment facility to schedule progesterone injection appointment, not provided at this hospital. DATION INTERN Plan of Care - Shantel Mitchell RN - 01/12/2019 5:[address] [facility] Plan of Care Note Assessment: Non Clinic, stated abdominal pain Plan: observe Subjective: abdominal pain Objective: patient presents to the ER from [facility] for her weekly progesterone injection per her clinic in [place]. Brought to L/D for complaints of abdominal pain to R/O PTL at 34 weeks. Hx of Meth use, U/A, UT sent. OB reviewed records brought from her [facility] in [place]. VSS afebrile. Cat 1 tracing, +FM, OB here cultures done, cervix closed per Dr. Garza. Having mild occasional contractions. Waiting for labs results, also had patient order food as she will miss her dinner at [facility]. Shantel Mitchell, DEBBIE --- End of Report --- DATION INTERN Triage Assessment Note - Braxton Ivey RN - 01/12/2019 2:52 PM VALIDATION INTERN Pt reports that she is 33 weeks , has been taking a weekly injection to stop labor. Pt was getting her injection at a [facility] but Pt is currently in a drug treatment program in [place] ([facility]). Pt was sent to the ED for the injection because she does not have an established provider in the . Pt reports that she was up all night with abdominal cramping but none today. DATION INTERN Triage Assessment Note - Viktoria Nicole RN - 01/12/2019 2:37 PM CST Spoke to L and D regarding this patient. She is 33-34 weeks . They state we should see the pt in the ED and they can come over to monitor them if needed. DATION INTERN documented in this encounter Administered Medications Inactive Administered Medications - up to 3 most recent administrations Medication Order MAR Action Action Date Dose Rate Site betamethasone Given 01/12/2019 7:50 12 mg Right Ventralgluteal acetate-betamethasone PM VALIDATION INTERN sodium phosphate (CELESTONE SOLUSPAN) injection 12 mg 12 mg, Intramuscular, Q24H, First dose on Tue01/12/19 at 1900, Last dose on Tue01/13/19 at 1900, For 2 doses, For 2 doses. Inject 1st dose now and repeat one time in 24 hours. magnesium oxide (MAG-OX) tablet 800 mg Given 01/12/2019 9:01 PM VALIDATION INTERN 800 mg 800 mg, Oral, NOW, On Tue01/12/19 at 2115, For 1 dose metoclopramide (REGLAN) injection 5 mg 5 mg, Intravenous, Q6H PRN, Nausea, Vomiting, Starting on Tue01/12/19 at 1837, Until Tue01/12/19 at 2311, Give 1st line medications, then 2nd line, then 3rd line. Progress to next line if medication is i neffective after 15 minutes, or has been previously ineffective, or if a medication for a line is not ordered. May use medication from any line if patient pref erence indicates. If third line agent is ineffective, call Practitioner. If unable to give IV m edications contact Practitioner. Aromatherapy may be used a t any time as adjunct therapy. 1st Line - ondansetron 2nd Line -prochlorperazine 3rd Line - meto clopramide NIFEdipine (PROCARDIA) capsule 10 mg 10 mg, Oral, Q6H, First dose (after last modification) on 01/13/19 at 0200, Until Discontinued, Maximum of 120-180 mg per day To s tart 6 hours after administration of 20mg. For uterine tocolysis. ondansetron (ZOFRAN) injection 4 mg 4 mg, Intravenous, Q8H PRN, Nausea, Vomiting, Starting on Tue01/12/19 at 1837, Until Tue01/12/19 at 2311, Give 1st line medications, then 2nd line, then 3rd line. Progress to next line if medication is i neffective after 15 minutes, or has been previously ineffective, or if a medication for a line is not ordered. May use medication from any line if patient pref erence indicates. If third line agent is ineffective, call Practitioner. If unable to give IV m edications contact Practitioner. Aromatherapy may be used a t any time as adjunct therapy. 1st Line - ondansetron 2nd Line -prochlorperazine 3rd Line - meto clopramide prochlorperazine (COMPAZINE) injection 1 0 mg 10 mg, Intravenous, Q6H PRN, Nausea, Vomiting, Startin g on Tue01/12/19 at 1837, Until Tue01/12/19 at 2311, Give 1st line medications, then 2nd line, then 3rd line. Progress to next line if medication is i neffective after 15 minutes, or has been previously ineffective, or if a medication for a line is not ordered. May use medication from any line if patient pref erence indicates. If third line agent is ineffective, call Practitioner. If unable to give IV m edications contact Practitioner. Aromatherapy may be used a t any time as adjunct therapy. 1st Line - ondansetron 2nd Line -prochlorperazine 3rd Line - meto clopramide documented in this encounter Active and Recently Administered Medications Times are shown in VALIDATION INTERN. Scheduled Medication Order 01/10/2019 01/11/2019 01/12/2019 betamethasone acetate-betamethasone sodi um phosphate (CELESTONE SOLUSPAN) injection 12 mg 1950 (Given - Provid er: Deloris Chilel RN) 12 mg, Intramuscular, Q24H, First dose o n Tue01/12/19 at 1900, For 2 doses, For 2 doses. Inject 1st dose now and repeat one time in 24 hours. magnesium oxide (MAG-OX) tablet 800 mg (COMPLETED) 2100 (Given - Provider: Deloris Chilel RN) 800 mg, Oral, NOW, On Tue01/12/19 at 2115, For 1 dose NIFEdipine (PROCARDIA) capsule 10 mg 10 mg, Oral, Q6H, First dose (after last modification) on Tue01/13/19 at 0200, Maximum of 120-180 mg per day To start 6 hours after administration of 20mg. For uterine tocolysis. NIFEdipine (PROCARDIA) capsule 20 mg 1900 (Not Given - Provider: Deloris Chilel RN - Reason: Other (Enter Reason in Comment Area) - Comment: Pt. not agreeable to staying in hospital overnight, per resident request hold off on giving the nifedipine.) 20 mg, Oral, ONCE, Tue01/12/19 at 1900, For 1 dose, Administer with patient on left lateral position. PRN Medication Order 01/10/2019 01/11/2019 01/12/2019 metoclopramide (REGLAN) injection 5 mg(Linked Group 1) 5 mg, Intravenous, Q6H PRN, Nausea, Vomi ting, Starting Tue01/12/19 at 1837, Give 1st line medications, then 2nd line, then 3rd line. Progress to next line if medication is ineffective after 15 minutes, or has been previously ineffective, or i f a medication for a line is not ordered. May use medication from any line if patient preference indicates. If third line agent is ineffective, call Practitioner. If unable to give IV medications contac t Practitioner. Aromatherapy may be used at any time as adjunct therapy. 1st Line - ondansetron 2nd Line - prochlorperazine 3rd Line - metoclopramide ondansetron (ZOFRAN) injection 4 mg(Linked Group 1) 4 mg, Intravenous, Q8H PRN, Nausea, Vomi ting, Starting Tue01/12/19 at 1837, Give 1st line medications, then 2nd line, then 3rd line. Progress to next line if medication is ineffective after 15 minutes, or has been previously ineffective, or i f a medication for a line is not ordered. May use medication from any line if patient preference indicates. If third line agent is ineffective, call Practitioner. If unable to give IV medications contac t Practitioner. Aromatherapy may be used at any time as adjunct therapy. 1st Line - ondansetron 2nd Line - prochlorperazine 3rd Line - metoclopramide prochlorperazine (COMPAZINE) injection 10 mg(Linked Group 1) 10 mg, Intravenous, Q6H PRN, Nausea, Vom iting, Starting Tue01/12/19 at 1837, Give 1st line medications, then 2nd line, then 3rd line. Progress to next line if medication is ineffective after 15 minutes, or has been previously ineffective, or if a medication for a line is not ordered. May use medication from any line if patient preference indicates. If third line agent is ineffective, call Practitioner . If unable to give IV medications conta ct Practitioner. Aromatherapy may be used at any time as adjunct therapy. 1st Line - ondansetron 2nd Line - prochlorperazine 3rd Line - metoclopramide Linked Groups Order Group 1: ondansetron (ZOFRAN) injection 4 mgJump to med 4 mg, Intravenous, Q8H PRN, Nausea, Vomi ting, Starting Tue01/12/19 at 1837
Give 1st line medications, then 2nd line, then 3rd line. Progress to next line if medication is ineffective after 15 m inutes, or has been previously ineffecti ve, or if a medication for a line is not ordered. May use medication from any line if patient preference indicates. If third line agent is ineffective, call Pract itioner. If unable to give IV medication s contact Practitioner. Aromatherapy may be used at any time as adjunct therapy. 1st Line - ondansetron 2nd Line -prochlorperazine 3rd Line - metoclopramide
And prochlorperazine (COMPAZINE) injection 10 mgJump to med 10 mg, Intravenous, Q6H PRN, Nausea, Vom iting, Starting Tue01/12/19 at 1837
Give 1st line medications, then 2nd line, then 3rd line. Progress to next line if medication is ineffective after 15 minutes, or has been previously ineffect marian, or if a medication for a line is not ordered. May use medication from any line if patient preference indicates. If third line agent is ineffective, call Prac titioner. If unable to give IV medicatio ns contact Practitioner. Aromatherapy may be used at any time as adjunct therapy. 1st Line - ondansetron 2nd Line -prochlorperazine 3rd Line - metoclopramide
And metoclopramide (REGLAN) injection 5 mgJump to med 5 mg, Intravenous, Q6H PRN, Nausea, Vomi ting, Starting Tue01/12/19 at 1837
Give 1st line medications, then 2nd line, then 3rd line. Progress to next line if medication is ineffective after 15 m inutes, or has been previously ineffecti ve, or if a medication for a line is not ordered. May use medication from any line if patient preference indicates. If third line agent is ineffective, call Pract itioner. If unable to give IV medication s contact Practitioner. Aromatherapy may be used at any time as adjunct therapy. 1st Line - ondansetron 2nd Line -prochlorperazine 3rd Line - metoclopramide
And Aromatherapy - Q-easy (CANCELED) Routine, Q8H PRN, Starting Tue01/12/19 a t 1838, Until Specified
Aromatherapy may be used at any time as adjunct therapy as needed for Nausea/Vomiting. documented in this encounter
[2022-01-15 18:59] LABS: Chlamydia DNA Amplified* NOT DETECTED (No Detected); GC DNA Amplified* NOT DETECTED (No Detected)
[2022-01-18 21:31] LABS: Trich vaginalis DNA Probe SEE SCAN REPORT
== END 2022-01-15 11:30 | disposition home or self-care (01) ==
PROVIDERS: Visit Provider Obstetrics & Gynecology
DX: N89.8 Other specified noninflammatory disorders of vagina (principal)
CPT/HCPCS: 87480; 87491; 87510; 87591; 87660